=== PATIENT | male | born 2000 | race Caucasian/White ===

== ENCOUNTER 2018-06-03 14:25 | Observation (INO) | payer OTHER ==
--- OUTSIDE RECORDS SUMMARY | 2018-06-03 16:00 | XMS REPORT ---
:2000 External Reference #:[id number] Author Organization [place] Address [address] [facility] [address] Phone [phone] Care Team Providers Name Role Phone [facility] Primary Care Physician Unavailable Payers Type Date Identification Numbers Payment Provider Subscriber Commercial Policy Number: [id number] [employer] Student [employer] Rigoberto Starks PayID: [id number] [address] [place] [address] Problems Description No Information Family History Date Family Member(s) Problem(s) Comments General Diabetes General Hypertension Social History Type Date Description Comments Lives With Roommate Occupation Student ETOH Use Occasionally consumes alcohol Smoking Patient has never smoked Exercise Type/Frequency Exercises regularly Allergies, Adverse Reactions, Alerts Date Description Reaction Status Severity Comments 06/03/2018 NKDA active Medications Medication Date Status Form Strength Qnty SIG Indications Ordering Provider Sulfamethoxazole Active Tablets 800-160mg [place], /Trimethoprim LETY Martinez Vital Signs Date Vital Result Comment 06/03/2018 Height 69 inches 5'9" Weight 142.00 lb BP Systolic 116 mmHg BP Diastolic 60 mmHg Respiratory Rate 18 /min Body Temperature 97.9 F Pain Level 8 BMI (Body Mass Index) 21.0 kg/m2 Results Description No Information Procedures Description No Information Plan of Care 06/03/2018 - Harini Morelos, MDM25.522 Pain in left elbowNew Xrays:Elbow Left 3+ VWSL03.113 Cellulitis of right upper limbFollow up:Follow up: in hospital
[2018-06-03] MEDS ORDERED: Acetaminophen TAB* 325 MG PO PRN (16:24)
[2018-06-03] MEDS ORDERED: PROCHLORPERAZINE INJ 5 MG/ML 2 ML VIAL IV PRN (16:24)
[2018-06-03] MEDS ORDERED: Ketorolac INJ* 15 MG/ML 1 ML VIAL IV PUSH PRN (16:25)
[2018-06-03] MEDS ORDERED: Vancomycin(*) 1,000 MG in NS 0.9% 250 ML* 250 ML IVPB ONE (16:25)
[2018-06-03] MEDS ORDERED: NS 0.9% 1000 ML* 1,000 ML IV SCH (16:30)
[2018-06-03 17:56] LABS: ABS Basophils 0.1 10^3/ul (0-0.2); ABS Eosinophils 0.2 10^3/ul (0-0.6); ABS Lymphocytes 2.3 10^3/ul (1.0-4.8); ABS Monocytes 0.7 10^3/ul (0-0.8); ABS Neutrophils 6.2 10^3/ul (1.5-7.7); ABS Nucleated RBC 0 10^3/ul; Eosinophil % 1.6 % (0-6); Hematocrit 43 % (42-52); Hemoglobin 14.5 g/dl (14.0-18.0); Lymphocyte % 24.2 % (25-47); Mean Corpuscular HGB Conc 34 g/dl (31-36); Mean Corpuscular Hemoglobin 29 pg (27-31); Mean Corpuscular Volume 85 fL (80-94); Mean Platelet Volume 8.9 um3 (7.4-10.4); Nucleated Red Blood Cells % 0.1; Platelet Count 214 10^3/ul (150-450); Red Blood Count 5.04 10^6/ul (4.00-5.40); Red Cell Distribution Width 13 % (10.5-15); White Blood Count 9.4 10^3/ul (3.5-10.8)
[2018-06-03] MEDS ORDERED: Vancomycin per Pharmacy* NOTE FOLLOW UP SCH (18:00)
[2018-06-03 18:19] LABS: EGFR Non-African American 92.1 (>60)
[2018-06-03] MEDS: Vancomycin(*) 1,000 MG in NS 0.9% 250 ML* 250 ML IVPB ONE ×2 (18:54→20:10)
--- NOTE | 2018-06-03 21:34 | HP ---
CC: Providers at [facility] MEDICINE HISTORY AND PHYSICAL: DATE OF ADMISSION: 06/03/18 ATTENDING PHYSICIAN: Wanda Andre MD * (dictation provided by Taylor Maldonado NP ). CHIEF COMPLAINT: Left elbow pain with redness and swelling. HISTORY OF PRESENT ILLNESS: Mr. Starks is a 18-year-old male with no past medical history who presented to the hospital today after failing outpatient treatment with Bactrim for left elbow cellulitis. Mr. Starks states that he bumped his left elbow about 2 days ago. He noticed increased redness and swelling to the left elbow. He was seen at [facility] where a joint aspiration was performed. The patient was started on Bactrim. Despite Bactrim , which he took for 4 days, he has continued to note swelling and redness in the elbow with decreasing range of motion. He went to see Dr. Morelos from [facility] today and she recommended that the patient needed to be admitted to the hospital for intravenous antibiotics. The patient denies fevers or chills. He has been eating and drinking normally. He has been having normal formed bowel movements. Mr. Starks had labs today drawn after he was directly admitted that shows CRP 19.17, his ESR is 21. He has no leukocytosis. He is afebrile. His vitals are stable. He did have an elbow x-ray from today outpatient which showed a normal unremarkable left elbow. PAST MEDICAL HISTORY: The patient's mother reports that he has a history of possible Crohn's disease, though he is asymptomatic. MEDICATIONS: None. ALLERGIES: None. FAMILY HISTORY: The patient's mother and father are alive and well. The patient's paternal grandfather had some mitral valve problems as does his mother. SOCIAL HISTORY: No report of alcohol, tobacco or drug use. The patient states his mother will be the healthcare proxy. REVIEW OF SYSTEMS: A 14-point review of systems was completed with Mr. Starks and all those not mentioned above were negative. PHYSICAL EXAMINATION GENERAL: Mr. Starks is lying in the bed with his family at the bedside. He is in no acute distress. VITAL SIGNS: Temperature 98.2, pulse rate 77, respiratory rate 16, O2 saturation 98% on room air, blood pressure 130/59. LUNGS: Clear to auscultation bilaterally with no accessory muscle use and good aeration. HEART: S1, S2. No murmur, rub, or gallop and regular. ABDOMEN: Soft, nontender with bowel sounds positive x4. EXTREMITIES: No cyanosis. The patient has erythematous left elbow. The redness is confined just to the olecranon. In the left elbow, there is a very small ulceration there with some very small amount of purulent drainage. This is not fluctuant. There is some swelling that tracks distally, but no redness beyond the olecranon. NEUROLOGIC: He is alert and he is oriented x3. He moves all extremities equally. There is no facial asymmetry or focal weakness. Extraocular movements are intact. LAB DATA: Sodium 137, potassium 4.0, chloride 103, serum bicarbonate 24, BUN 13, creatinine 1.03, glucose 92. WBC 9.4, hemoglobin 14.5, hematocrit 43, platelet count 214,000. ESR 21, CRP 19.17. ASSESSMENT: Mr. Starks is a 18-year-old male with no known past medical history who presents today to the hospital after failure of treatment with Bactrim for left elbow cellulitis. Our plans are for observation in the hospital as I expect his length of stay to be less than 2 days for the followin. Left elbow cellulitis. I appreciate the consultation with Dr. Morelos who will be seeing the patient in the hospital as well. The patient also will have a consultation with Dr. Sullivan who should be able to see him tomorrow. In the meantime, the patient will be on vancomycin intravenously. The patient did have a report from [facility] from the joint aspirate, which shows that the organism is staph aureus and is sensitive to Bactrim and vancomycin. This is going to all be reviewed by Dr. Sullivan and antibiotic recommendations can be followed. 2. DVT prophylaxis with early mobility. 3. Code status is full code. TIME SPENT: Approximately 60 minutes were spent on the admission of this patient, more than half of the time was spent with the patient at the bedside reviewing the events leading up to this hospitalization, performing the physical examination, and reviewing my plan of care. TAYLOR MALDONADO, YELENA [id number]/[facility] #: [id number] [place]
[2018-06-04] MEDS ORDERED: Vancomycin(*) 1,000 MG in NS 0.9% 250 ML* 250 ML IVPB SCH (04:00)
--- NOTE | 2018-06-04 11:27 | CONS ---
CONSULTATION REPORT: DATE OF CONSULT: 06/04/18 REQUESTING PHYSICIAN: Wendy Maldonado NP CONSULTING SERVICE: Infectious Disease. REASON FOR CONSULT: Left elbow soft tissue infection. IMPRESSION: Staphylococcal skin and soft tissue infection about the left elbow. His elbow range of motion is painless and mostly intact taking into account of the soft tissue edema. There does not look to be enlarged bursa. This started as a pustule and progressed I think to a large subcutaneous abscess. He had had an outpatient culture that grew Staphylococcus. I have been unable to track down yet whether this is methicillin resistant or not. He had been on Bactrim as an outpatient with progression and worsening of soft tissue infection. RECOMMENDATION: We will continue vancomycin, I think he probably should have another 24 hours of IV and make sure soft tissue component really starts turning the corner and that his range of motion improves with decreased edema. I was able to express a fairly considerable amount of pus from the open wound, which has been there for about a week and a half. Presuming this continues to improve with antibiotics, we will change him to an oral agent for another 10 days with close followup. 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 It started about a week ago as a pustule. He has never had that happened before. He tried picking and popping it. It did kind of pop, but then the whole elbow swelled up. He was seen at [place]. A culture of the open pustule was taken. It grew Staph. He was prescribed Bactrim, which he had taken and he tolerated it well. Despite doing that, though he had progression of swelling throughout his arm and saw Dr. Morelos, who directed him to the emergency room for admission. He was started on vancomycin overnight. He had no fevers, chills, or sweats. Today, he thinks the swelling is down a bit. He can painlessly fully extend, pronate, and supinate his elbow, flexion is a little bit decreased, he thinks mostly due to the tape and bandage on the elbow wound. No other joints are bothering him. He has not had an infection like this in the past and has not had to be in the hospital for infection previously. PAST MEDICAL HISTORY: None. MEDICATIONS: 1. Vancomycin 1 g IV every 8 hours. 2. Tylenol as needed. ALLERGIES: No known drug allergies. FAMILY HISTORY: No recurrent infections. 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 He does not smoke, drink, or use injection drugs. REVIEW OF SYSTEMS: All negative to a 14-point review of systems except as noted above in the history of present illness. PHYSICAL EXAM: Vital Signs: Stable. He is afebrile, normotensive. In general , he is awake, not in distress. Neurologic: He is oriented x3, follows all commands. Sensation intact to light touch in his left hand. HEENT: There is no conjunctival hemorrhage. Oropharynx without lesions. Neck is supple without mass. Heart is regular rate and rhythm without murmurs, rubs, or gallops. Lungs are clear to auscultation bilaterally. Lymph nodes: There is no left axillary lymphadenopathy. Skin: There is no rash or splinter hemorrhage. Musculoskeletal: There is left elbow 4 mm open wound with surrounding fluctuance and erythema. I expressed blood and pus from the wound. There is edema extending from the mid upper arm to the mid lower arm without crepitance or fluctuance. Left elbow extension is intact. Decreased flexion, normal pronation and supination. There is no enlarged bursal sac. LABORATORY DATA: His kidney and liver function are normal. Please see impressions and recommendations as outlined above, which I have discussed with Stephanie Teresa NP. Thanks for asking me to see Mr. Starks in consultation. [id number]/[facility] #: [id number] MTDD
[2018-06-04] MEDS: ceFAZolin 1 GM VIAL(*) 1 GM in NS 0.9% 50 ML* 50 ML IVPB SCH ×2 (11:32→19:26)
--- NOTE | 2018-06-04 13:44 | PN ---
Progress Note - Progress Note Date of Service: 06/04/18 Note: Pt seen and examined. Consult note dictated. Improving with IV abx. No plan for surgical involvement. Will see outpatient. pls call with questions.
--- NOTE | 2018-06-04 14:36 | PN ---
Progress Note - Progress Note Date of Service: 06/04/18 SOAP: Subjective: [Pt was seen this am sitting in a chair in the break room working on his physics assignments. The pt states that he is feeling well. He denies any fevers , chills, or night sweats. Denies chest pain, SOB, nausea or vomiting. ] Objective: [General: A&O x 3, NAD. MSK, LUE: Dressing was removed. There is bloody drainage present. A 4x4 was used and the area was gently touched, a small blotch was present on the 4x4. No other drainage with further wiping. The pts elbow is 5 degrees shy off full extension to 110 degrees of flexion. The pts area of erythema has decreased within the marked area. He is NVI with a 2+ radial pulse. ] Vital Signs Temp 97.5 F 06/04/18 12:04 Pulse 64 06/04/18 12:04 Resp 14 06/04/18 12:04 BP 120/64 06/04/18 12:04 Pulse Ox 100 06/04/18 12:04 Intake & Output 06/03/18 06/04/18 06/04/18 18:59 06:59 18:59 Intake Total 973 033 6948 Output Total 0 Balance 612 979 0173 Weight 141 lb 9.6 oz Intake: IV Fluids 1281 NS 0.9 31 IVPB 250 131 cefazolin 50 Oral 460 0 1320 Output: Urine 0 Other: # Bowel Movements 0 # Voids 2 Assessment: [Left elbow cellulitis resolving ] Plan: [-New telfa dressing placed - Continue with vancomycin per ID - Follow up with Dr. Morelos outpatient. ]
--- NOTE | 2018-06-04 20:16 | PN ---
Subjective Date of Service: 06/04/18 Interval History: Patient reports that his elbow is feeling better. Denies any fever or chills during the night. Denies n/v/d or abd pain. Denies chest pain or shortness of breath. Family History: Unchanged from Admission Social History: Unchanged from Admission Past Medical History: Unchanged from Admission Objective Active Medications: Acetaminophen (Tylenol Tab*) 650 mg PO Q6H PRN PRN Reason: pain/fever Cefazolin Sodium 1 gm/ Sodium (Chloride) 50 mls @ 200 mls/hr IVPB Q8H ZENOBIA Last Admin: 06/04/18 19:26 Dose: 200 mls/hr Ketorolac Tromethamine (Toradol Inj*) 15 mg IV PUSH Q6H PRN PRN Reason: PAIN Prochlorperazine Edisylate (Compazine Inj*) 5 mg IV Q6H PRN PRN Reason: NAUSEA/VOMITING Vital Signs - 8 hr 06/04/18 06/04/18 16:10 19:23 Temperature 98.0 F 98.9 F Pulse Rate 63 67 Respiratory 16 20 Rate Blood Pressure 119/69 135/63 (mmHg) O2 Sat by Pulse 99 100 Oximetry Oxygen Devices in Use Now: None Appearance: alert sittingin bed , appears comfortable Eyes: No Scleral Icterus Ears/Nose/Mouth/Throat: NL Teeth, Lips, Gums, Mucous Membranes Moist Neck: NL Appearance and Movements; NL JVP, Trachea Midline Respiratory: Symmetrical Chest Expansion and Respiratory Effort, Clear to Auscultation Cardiovascular: NL Sounds; No Murmurs; No JVD, No Edema Abdominal: NL Sounds; No Tenderness; No Distention Lymphatic: No Cervical Adenopathy Extremities: No Edema, No Clubbing, Cyanosis, - - left radial pulses intact +2 Skin: - - left elbow with redness and edema, warm to touch, dressing with a small amount of purlent drainage Neurological: Alert and Oriented x 3 Nutrition: Taking PO's Result Diagrams: 06/03/18 17:32 06/03/18 17:32 Assess/Plan/Problems-Billing Assessment: Mr. Starks is a 18 y.o male with no signficant PMHx who was sent from Dr. Morelos office for evaluation of left elbow cellulitis - Patient Problems (1) Cellulitis Current Visit: Yes Status: Acute Code(s): L03.90 - CELLULITIS, UNSPECIFIED SNOMED Code(s): 840218381 Comment: Will switch Vancomycin to Ancef IV as culture is positive for MSSA with [facility] wound culture and per ID recommendations - Small amount of purlent drainage noted to dressing - patient remains afebrile - Will discharge home on PO keflex 500 TID for 10 days (2) DVT prophylaxis Current Visit: Yes Status: Acute Code(s): ORE1742 - SNOMED Code(s): 757678180 Comment: ambulation (3) Full code status Current Visit: Yes Status: Acute Code(s): Z78.9 - OTHER SPECIFIED HEALTH STATUS SNOMED Code(s): 130824489 Status and Disposition: discharge home in the AM -
--- NOTE | 2018-06-04 22:27 | CONS ---
CC: PCP CONSULTATION REPORT: DATE OF CONSULT: 06/04/18 CHIEF COMPLAINT: Left elbow pain. HISTORY OF PRESENT ILLNESS: Briefly, Mr. Starks was seen in my office yesterday for left elbow cellul itis and small drainage of his elbow. He had tried a couple days of Bactrim with no relief and worse sanket symptoms. He has lost more range of motion of his elbow. He is tender to palpation with increa sed swelling. He was afebrile with no signs of appearing septic. We transferred him [facility] to admit him for IV antibiotics and continue to monitor him. ID was then consulted as well. He was admitted to the hospitalist service. He denies any numbness or tingling. No fevers or chills. H e has been on nearly 24 hours of vancomycin and was switched to Ancef today. He is likely going to b e discharged tomorrow on oral pain medication. He currently states that the pain has improved a lot. His motion has improved. He still has a lot of swelling and the redness has gone down, but it is s till uncomfortable. Dr. Sullivan came and expressed some of the pus from his elbow as he is able to tolerate people touching him now. He denies numbness or tingling. No fevers or chills. PAST MEDICAL HISTORY: Negative. PAST SURGICAL HISTORY: Negative. MEDICATIONS: 1. Vancomycin. 2. Tylenol. ALLERGIES: None. FAMILY HISTORY: Negative. 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 Family is from the [facility]. He denies tobacco , alcohol, and IV drug use. REVIEW OF SYSTEMS: A 14-point review of systems reviewed with the patient today and significant only for the above complaint. PHYSICAL EXAM: He is in no acute distress. He is well developed and well nourished. Alert and orie nted x3. Pleasant mood and normal affect. Good balance and coordination of the extremities. Vitals : Temp 97, pulse 75, respiratory rate 14, O2 99%, blood pressure 111/57. Examination of the left el bow demonstrates the swelling has decreased. The erythema has also decreased. His range of motion h as improved significantly. He is able to flex to 140 and extend, missing only about 10 degrees of fu ll extension. His extremities are warm and well perfused. He has 2+ radial pulse. He is able to pe rform thumbs up, OK sign, flexion, and cross finger abduction of his digits. The small purple wound has some mild drainage, but has otherwise decreased in size. LABORATORY DATA: These were obtained yesterday. White count of 9.4, hematocrit of 43, platelet coun t of 214. ESR of 21. Sodium of 137, potassium of 4.0, chloride 103, carbon dioxide 24, BUN 13, crea tinine 1.03. CRP of 19.17. The growth from the clinic demonstrated MSSA. ASSESSMENT AND PLAN: He has MSSA cellulitis with a small tiny abscess. This has improved a lot. Hi s motion has improved. At this point, I would plan for a conservative treatment. I will see him verona k in the office in approximately 2 weeks to make sure he is doing okay, but he will be discharged lik thuy tomorrow after another course of antibiotics on oral Keflex or whatever Infectious Disease recomm ends. I will see the patient back in 2 weeks. Thank you for this consultation on Rigoberto Starks. [id number]/[facility] #: [id number]
[2018-06-05] MEDS: ceFAZolin 1 GM VIAL(*) 1 GM in NS 0.9% 50 ML* 50 ML IVPB SCH ×2 (03:07→11:22)
[2018-06-05 07:33] VITALS: BP 98/61
[2018-06-05] MEDS ORDERED: Vancomycin Trough Check NOTE FOLLOW UP ONE (11:30)
--- NOTE | 2018-06-05 13:01 | PN ---
Subjective Date of Service: 06/05/18 Interval History: C/o mild increased swelling to left lower arm today, redness is improved since yesterday. expressed a small amount of pus/ bloody drainage from the patients left elbow. redness and swelling improved to left elbow, redness remains within the outlined area and has recessed. Denies chest pain or shortness of breath. Denies abd pain n/v/d. Family History: Unchanged from Admission Social History: Unchanged from Admission Past Medical History: Unchanged from Admission Objective Active Medications: Acetaminophen (Tylenol Tab*) 650 mg PO Q6H PRN PRN Reason: pain/fever Cefazolin Sodium 1 gm/ Sodium (Chloride) 50 mls @ 200 mls/hr IVPB Q8H ZENOBIA Last Admin: 06/05/18 11:22 Dose: 200 mls/hr Ketorolac Tromethamine (Toradol Inj*) 15 mg IV PUSH Q6H PRN PRN Reason: PAIN Prochlorperazine Edisylate (Compazine Inj*) 5 mg IV Q6H PRN PRN Reason: NAUSEA/VOMITING Vital Signs - 8 hr 06/05/18 06/05/18 07:33 08:00 Temperature 97.8 F Pulse Rate 65 Respiratory 16 16 Rate Blood Pressure 98/61 (mmHg) O2 Sat by Pulse 98 Oximetry Oxygen Devices in Use Now: None Appearance: appears comfortable resting in bed, no acute distress. Eyes: No Scleral Icterus Ears/Nose/Mouth/Throat: Clear Oropharnyx, Mucous Membranes Moist Neck: NL Appearance and Movements; NL JVP, Trachea Midline Respiratory: Symmetrical Chest Expansion and Respiratory Effort, Clear to Auscultation Cardiovascular: NL Sounds; No Murmurs; No JVD, No Edema Abdominal: NL Sounds; No Tenderness; No Distention Extremities: No Edema, No Clubbing, Cyanosis Skin: No Rash or Ulcers, - - left elbow with mild erthyema, small amount of blood and pus expressed from the open area to left elbow, small amount of redness noted to left anterior forearm and and elbow area. improving Neurological: Alert and Oriented x 3 Nutrition: Taking PO's Result Diagrams: 06/03/18 17:32 06/03/18 17:32 Assess/Plan/Problems-Billing Assessment: Mr. Starks is a 18 y.o male with no signficant PMHx who was sent from Dr. Morelos office for evaluation of left elbow cellulitis - Patient Problems (1) Cellulitis Current Visit: Yes Status: Acute Code(s): L03.90 - CELLULITIS, UNSPECIFIED SNOMED Code(s): 707818493 Comment: Will switch Vancomycin to Ancef IV as culture is positive for MSSA with [facility] wound culture and per ID recommendations - Small amount of pus and bloody secrections expressed from the wound - patient remains afebrile - Will discharge home on PO keflex 500 QID for 10 days (2) DVT prophylaxis Current Visit: Yes Status: Acute Code(s): VKS3224 - SNOMED Code(s): 067911651 Comment: ambulation (3) Full code status Current Visit: Yes Status: Acute Code(s): Z78.9 - OTHER SPECIFIED HEALTH STATUS SNOMED Code(s): 876480890 Status and Disposition: discharge home
--- NOTE | 2018-06-06 00:34 | DS ---
DISCHARGE SUMMARY: DATE OF ADMISSION: 06/03/18 DATE OF DISCHARGE: 06/05/18 ATTENDING PHYSICIAN: Dr. Lazarus Chan * (dictated by Stephanie Teresa NP). PRIMARY CARE PROVIDER: [facility]. PRIMARY DIAGNOSIS: Left elbow cellulitis. SECONDARY DIAGNOSES: None. STUDIES COMPLETED WHILE IN THE HOSPITAL: None. DISCHARGE MEDICATIONS: Keflex 500 mg p.o. t.i.d. x10 days. No continued home medications. Discontinued medication: Bactrim. HISTORY OF PRESENT ILLNESS AND HOSPITAL COURSE: Mr. Starks is a 18-year-old male with no significant past medical history who presented to the hospital after failing outpatient treatment with Bactrim from left elbow cellulitis. Mr. Starks states that he bumped his left elbow about 2 days ago and noticed increasing redness and swelling to the left elbow who was seen at [facility] , where a joint aspiration was performed. The patient was started on Bactrim. Despite the Bactrim which he took for 4 days, he continued to notice swelling and redness to the elbow with decreasing range of motion. He went to see Dr. Morelos at [facility] today and she recommended he come to the hospital and be admitted for intravenous antibiotics. The patient denies any fever or chills ; denies any nausea, vomiting, or diarrhea. He reports that he has been eating and drinking normally. At the hospital, Mr. Starks had routine lab work drawn which showed a CRP of 19.17 and ESR of 21. He had no leukocytosis. He was afebrile. His vital signs were stable. He had an elbow x-ray as an outpatient, which showed normal unremarkable left elbow. PAST MEDICAL HISTORY: The patient reports that he possibly had Crohn's disease though he is asymptomatic. He takes no home medications. While in the hospital the patient was placed on vancomycin initially. The culture came back from [facility] which showed bacteria positive for MSSA. He was seen by Infectious Disease who changed his antibiotic to Ancef. He continued with Ancef throughout his hospitalization and his cellulitis to the left elbow continued to improve with IV antibiotics. He did have a small to moderate amount of pus/bloody drainage expressed from the left elbow during his hospitalization. At this time, Mr. Starks is stable for discharge home. Vital signs are as follows, temperature was 98.7, heart rate 65, respirations 16, O2 saturation was 98%, blood pressure 110/55. DISCHARGE PLAN: Mr. Starks will be discharged back home. Activity as tolerated. Left elbow cellulitis. He should keep dressing dry and intact to his left elbow. He can put warm packs on his left elbow 3 times a day. He should wash area with mild soap and water and apply a dry dressing to the elbow daily. He needs to follow up with [facility] on Thursday for wound recheck. He should follow up with Dr. Sullivan in [address] Morelos in 1 week for recheck. He needs to take Keflex 500 mg p.o. t.i.d. x10 days. A prescription was sent to [facility]. The patient was instructed to return to the emergency room if he develops any fever, chills, nausea, vomiting, any increased swelling or red streaking noted to the left elbow or left forearm or upper arm. The patient verbalized understanding. The patient should follow up with Dr. Sullivan in 1 week. He should follow up with Dr. Morelos from Orthopedics within 1 week. He is to follow up with [facility] on Thursday for a wound recheck. The patient is again instructed to return to the emergency room for any increased redness, swelling, or decreased mobility of his left arm, any red streaking, fever or chills. The patient verbalized understanding. This is a summarization of his hospitalization. If further details are needed, please obtain his complete medical record. TIME SPENT: Time spent on this discharge was approximately 45 minutes, greater than half that time was spent with the patient discussing discharge plans and instructions. CONDITION ON DISCHARGE: Stable. STEPHANIE SOFI, [employer] [id number]/CPS #: [id number] [place]
== END 2018-06-05 12:00 | disposition home or self-care (01) ==
LOC: MED 15:56
PROVIDERS: ADMIT Internal Medicine; ATTEND Internal Medicine
DX: L03.114 Cellulitis of left upper limb (principal); B95.61 Methicillin susceptible Staphylococcus aureus infection as the cause of diseases classified elsewhere
CPT/HCPCS: 36415; 80053; 85025; 85652; 86140; 96365; 96366; 96367; G0378; J0690; J3370

== ENCOUNTER 2019-06-25 03:35 | Emergency (ER) | payer OTHER ==
--- NOTE | 2019-06-25 03:51 | ED ---
Substance Abuse/Use - HPI Summary HPI Summary: This pt is a 19 Y/O M presenting to [facility] for complications following edibles that he ate. He states that he is feeling sensations that he did not know that he had. He denies any fevers, chills, headaches, and vomiting. He states that he is slightly nauseas, dizzy, and lightheaded. He has no pertinent PMHx. He states no alleviating or aggravating factors. - History Of Current Complaint Chief Complaint: EDSubstanceAbuse Stated Complaint: INTOX PER EMS Hx Obtained From: Patient Ingestion History: Type/Name Of Drug - marijuana edible Severity Initially: Moderate Severity Currently: Severe Aggravating Factor(s): Nothing Alleviating Factor(s): Nothing Associated Signs And Symptoms: Negative - fevers, chills, headaches, and vomiting, Nausea, Other: - lightheaded, dizzy - Allergies/Home Medications Allergies/Adverse Reactions: Allergies Allergy/AdvReac Type Severity Reaction Status Date / Time No Known Allergies Allergy Verified 06/03/18 16:30 PMH/Surg Hx/FS Hx/Imm Hx Previously Healthy: Yes Endocrine/Hematology History: Denies: Hx Diabetes Cardiovascular History: Denies: Hx Hypertension Respiratory History: Denies: Hx Asthma GI History: Reports: Hx Crohn's Disease Sensory History: Reports: Hx Contacts or Glasses Denies: Hx Hearing Aid, Hx Hearing Problem Opthamlomology History: Reports: Hx Contacts or Glasses - Surgical History Surgical History: Yes Surgery Procedure, Year, and Place: [place] teeth - Immunization History Immunizations Up to Date: Yes Infectious Disease History: No Infectious Disease History: Denies: Traveled Outside the [place] in Last 30 Days - Family History Known Family History: Positive: Hypertension - grandmother, Other - Father has Parkinson's - Social History Occupation: Student - [employer] Lives: Dormitory/Roommates Alcohol Use: Occasionally Hx Substance Use: No Substance Use Type: Reports: None Hx Tobacco Use: No Smoking Status (MU): Never Smoked Tobacco Household Exposure: No Review of Systems Positive: Other - Lightheaded, dizzy. Negative: Fever, Chills Positive: Nausea. Negative: Vomiting Negative: Headache All Other Systems Reviewed And Are Negative: Yes Physical Exam - Summary Physical Exam Summary: Appearance: Well-appearing, Well-nourished, lying in bed comfortably Skin: Warm, dry, no obvious rash Eyes: sclera anicteric, no conjunctival pallor ENT: mucous membranes moist, pharynx appears normal Neck: Supple, nontender Respiratory: Clear to auscultation, no signs of respiratory distress Cardiovascular: Normal S1, S2. No murmurs. Normal distal pulses in tibial and radial bilaterally. Abdomen: Soft, nontender, normal active bowel sounds present Musculoskeletal: Normal, Strength/ROM Intact Neurological: A&Ox3, awake and alert, mentation is normal, speech is fluent and appropriate Psychiatric: affect is normal, does not appear anxious or depressed Triage Information Reviewed: Yes Vital Signs On Initial Exam: Initial Vitals Temp Pulse Resp BP Pulse Ox 98.2 F 95 20 131/91 99 06/25/19 03:38 06/25/19 03:38 06/25/19 03:38 06/25/19 03:38 06/25/19 03:38 Vital Signs Reviewed: Yes Procedures - Sedation Patient Received Moderate/Deep Sedation with Procedure: No Diagnostics - Vital Signs Vital Signs Temp Pulse Resp BP Pulse Ox 06/25/19 03:38 98.2 F 95 20 131/91 99 - Laboratory Lab Statement: Any lab studies that have been ordered have been reviewed, and results considered in the medical decision making process. Course/Dx - Course Course Of Treatment: This pt is a 19 Y/O M presenting to [facility] for complications following edibles that he ate. He states that he is feeling sensations that he did not know that he had. His PE found no abnormal findings. This pt will be signed out to Dr. Robison pending sobriety. He was diagnosed with cannabis abuse during his ED course. - Diagnoses Provider Diagnoses: Cannabis abuse Discharge ED - Sign-Out/Discharge Documenting (check all that apply): Sign-Out Patient Signing out patient TO: William Robison - Discharge Plan Condition: Good Disposition: HOME Patient Education Materials: Cannabis Abuse (ED) Referrals: [facility] [Outside] - If Needed Additional Instructions: Follow up with your primary care provider in 2-3 days. Return to the emergency department for any new or worsening symptoms. - Billing Disposition and Condition Condition: GOOD Disposition: Home - Attestation Statements Document Initiated by Scribe: Yes Documenting Scribe: Esdras Alarcon Provider For Whom Scribe is Documenting (Include Credential): Vinnie Neumann MD Scribe Attestation: I, Esdras Agnes, scribed for Vinnie Neumann MD on 06/26/19 at 0116. Scribe Documentation Reviewed: Yes Provider Attestation: The documentation as recorded by the Esdras zacarias accurately reflects the service I personally performed and the decisions made by me, Vinnie Neumann MD Status of Scribgaudencio Document: Viewed
--- NOTE | 2019-06-25 07:20 | ED ---
Progress - Progress Note Progress Note: The patient is a sign-out from Dr. Vinnie Neumann MD, to Dr. William Robison MD, at change of shift at 0700 on 06/25/19, pending sobriety and likely discharge. 0920 - patient awake and ambulatory; he is clear for discharge home Re-Evaluation - Re-Evaluation First Eval Re-Evaluation Time: 09:20 Change: Improved Comment: Patient awake and ambulatory. Course/Dx - Course Course Of Treatment: The patient is a sign-out from Dr. Vinnie Neumann MD, to Dr. William Robison MD, at change of shift at 0700 on 06/25/19, pending sobriety and likely discharge. Since patient is awake and ambulatory, he is able to be discharged safely. Patient understands and agrees with this plan. Patient is Sober and A+O x 3. - Diagnoses Provider Diagnoses: Cannabis abuse Discharge ED - Sign-Out/Discharge Documenting (check all that apply): Patient Departure - Patient will be discharged home., Receiving Sign-Out Receiving patient FROM: Vinnie Neumann - Patient is a sign-out from Dr. Vinnie Neumann MD, at change of shift at 0700 on 06/25/19, pending sobriety and likely discharge. - Discharge Plan Condition: Good Disposition: HOME Patient Education Materials: Cannabis Abuse (ED) Referrals: [facility] [Outside] - If Needed Additional Instructions: Follow up with your primary care provider in 2-3 days. Return to the emergency department for any new or worsening symptoms. - Billing Disposition and Condition Condition: GOOD Disposition: Home - Attestation Statements Document Initiated by [place]: Yes Documenting Scribe: Aida Ascencio Provider For Whom Davie is Documenting (Include Credential): Dr. William Robison MD Scribe Attestation: Aida Carbajal scribed for Dr. William Robison MD on 06/26/19 at 0911. Scribe Documentation Reviewed: Yes Provider Attestation: The documentation as recorded by the Aida zacarias accurately reflects the service I personally performed and the decisions made by me, Dr. William Robison MD Status of Scribe Document: Viewed Procedures - Sedation Patient Received Moderate/Deep Sedation with Procedure: No
[2019-06-25 08:41] VITALS: BP 112/60
== END 2019-06-25 09:22 | disposition home or self-care (01) ==
LOC: ED 03:35
DX: F12.10 Cannabis abuse, uncomplicated (principal); R42 Dizziness and giddiness
CPT/HCPCS: 99282